=== PATIENT | female | born 1985 | race African-American/Black ===

== ENCOUNTER 2016-10-05 03:56 | Emergency (ER) | payer SELFPAY ==
[2016-10-05 04:08] VITALS: BMI 31.9
[2016-10-05] MEDS ORDERED: DIPHENHYDRAMINE 50 MG/ML VIAL IM ONE (04:10)
[2016-10-05] MEDS ORDERED: PREDNISONE 20 MG TAB PO ONE (04:10)
[2016-10-05] MEDS ORDERED: FAMOTIDINE 20 MG TAB PO ONE (04:10)
--- NOTE | 2016-10-05 04:13 | EDPRACDOC ---
- General Information Chief Complaint: Skin Rash (not drug induced) Stated Complaint: RASH Time Seen by Provider: 10/05/16 04:01 Information Source: Patient Mode Of Arrival: Car Home Medications: Home Medications Diazepam 2 mg PO BID PRN 08/29/15 Multivitamin [One Daily Essential] 1 tab PO DAILY 03/27/16 [place]-3 Fatty Acids/Fish Oil [Fish Oil 1,[address]] 1 cap PO DAILY 03/27 Butalb/Acetaminophen/Caffeine [Fioricet Tablet (50mg/325mg/40mg)] 1 - 2 tab PO Q4H PRN 04/06/16 Acetaminophen [Tylenol] 325 mg PO Q4-6H PRN 09/08/16 Hydrocodone Bit/Acetaminophen [Hydrocodon-Acetaminophen 5-325] 1 tab PO Q6H PRN #10 tab 09/09/16 Epinephrine [Epipen 2-Mathieu] 0.3 mg IM DIR PRN #2 pen.injctr 10/05/16 Prednisone [Deltasone, Orasone] 60 mg PO DAILY #15 tab 10/05/16 Allergies/Adverse Reactions: Allergies Allergy/AdvReac Type Severity Reaction Status Date / Time doxycycline Allergy Hives* Verified 10/05/16 04:12 escitalopram oxalate Allergy Hives* Verified 10/05/16 04:12 [From Lexapro] fluconazole [From Diflucan] Allergy Hives* Verified 10/05/16 04:12 nabumetone [From Relafen] Allergy Hives* Verified 10/05/16 04:12 Penicillins Allergy Hives* Verified 10/05/16 04:12 - History of Present Illness HPI: on PCN for dental infection last 7 days, having rash x 2 ays, no wheezing or trouble breathing, rash is itchy and diffuse, no h/o same, took benadryl about an hour [employer]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 no lip or tongue swelling Exposure occurred: 2 days Exposed to: Medication Symptoms started: Hours Symptoms Developed: Reports: Pruritus, Rash. Denies: Difficulty swallowing, Facial swelling Reaction Location: Reports: Generalized Relevant History of: Denies: Asthma Associated Signs and Symptoms: Denies: Abdominal Pain, Chest Pain, Faintness, Generalized Swelling ED Past Medical History - History Reviewed Yes Nurses notes reviewed and agree except as marked - Patient Medical History Neurological History: Reports: Migraine GI/ History: Reports: Gastroesophageal Reflux. Denies: Urinary Tract Infection Psychological History: Reports: Depression, Anxiety Systemic History: Denies: Cancer Surgical History: Reports: Other (HEIDI FUNDOPLICATION) - Social Medical History Smoking Status: Never smoker EDM Review of Systems - Review of Systems ROS Negative Except as Marked: Yes All systems reviewed and were negative except as marked - Physical Exam Constitutional: Alert (Awake), No apparent distress Oriented to: Time, Person, Place Last recorded Vital Signs: Last Vital Signs Temp Pulse 90 10/05/16 04:02 Resp 18 10/05/16 04:02 BP 132/77 10/05/16 04:02 Pulse Ox 99 10/05/16 04:02 Oxygen Pulse Oxygen Saturation 99 O2 Device Room Air Oxygen Flow Rate Fraction of Inspired Oxygen ( FIO2) - HEENT Head: Normal ( normocephalic) Eye Exam: Normal (PERRL, EOMI, Sclera white) Oropharynx: Normal (Pharynx:Moist without exudate,Gums-no swelling), Other ( uvula midline no swelling). negative: Red TMJ: Normal Nose: No Symptoms Reported (septum midline) Neck: Normal (FROM, trachea at midline) - Respiratory/Cardiovascular Respiratory: Normal - CTA (BBS clear to auscultation without adventitious sounds ) Cardiovascular: Normal (RRR without murmur, gallop or rub) - GI Auscultation: Normal (NABS) Palpation: Normal (Soft,No rebound or guarding, non distended) Tenderness: Non tender Harper's Sign: Negative - Musculoskeletal Back: Normal (Non-Tender) Extremities: Normal (Normal tone, Pulses 2+ No cyanosis or edema, FROM) - Integumentary Skin: Warm, Dry, Rash (diffuse erythematous blanching raised rash lesions c/w hives) Lymphatics: Normal (no adenopathy) - Neurologic Memory Impaired: Normal Motor Function: Normal (Normal tone, Pulses 2+ No cyanosis or edema, FROM) Cranial Nerve: Normal (CN II-X11 intact sensation, strength 5/5) Cerebellar: Normal Mood Description: Normal Perception: Normal - Re-evaluation Re-evaluation 1 Re-evaluation Time: 05:09 (feeling better, rash improving, plan d/c home) Decision Time to Discharge: 05:10 - Departure Yes I personally saw and evaluated the patient. Disposition: Home Final Diagnosis: Allergic reaction caused by a drug Instructions: Acute Rash (ED) Education/Counseling Given To: Patient Education/Counseling Given Regarding: Diagnosis, Treatment, Follow Up Referrals: None,No Provider [Primary Care Provider] - One Week Prescriptions: Epinephrine [Epipen 2-Mathieu] 0.3 mg IM DIR PRN #2 pen.injctr PRN Reason: SEVERE ALLERGIC REACTION Prednisone [Deltasone, Orasone] 60 mg PO DAILY #15 tab
[2016-10-05 05:23] VITALS: BP 120/71; PULSE 81
== END 2016-10-05 05:22 | disposition home or self-care (01) ==
LOC: ED 03:56
DX: L25.8 Unspecified contact dermatitis due to other agents (principal); T50.905A Adverse effect of unspecified drugs, medicaments and biological substances, initial encounter
CPT/HCPCS: 96372; 99283; J1200; J3490

== ENCOUNTER 2016-10-29 20:05 | Emergency (ER) | payer SELFPAY ==
[2016-10-29 20:18] VITALS: BP 131/78; PULSE 80; TEMP 98.3; BMI 31.8
--- NOTE | 2016-10-29 21:20 | DIRPT ---
CLINICAL DATA: Cough. Chest pain radiates down the left arm. EXAM: CHEST 2 VIEW COMPARISON: 09/08/2016 FINDINGS: The heart size and mediastinal contours are within normal limits. Both lungs are clear. The visualized skeletal structures are unremarkable. IMPRESSION: No active cardiopulmonary disease. Electronically Signed By: Abigail Zaragoza M.D. On: 10/29/2016 21:17
--- NOTE | 2016-10-29 21:35 | EDPRACDOC ---
- General Information Chief Complaint: Chest Wall Pain Stated Complaint: CP TIGHTNESS PAIN IN LT ARM Time Seen by Provider: 10/29/16 20:35 Information Source: Patient Mode of Arrival: Car Home Medications: Home Medications Diazepam 2 mg PO BID PRN 08/29/15 Multivitamin [One Daily Essential] 1 tab PO DAILY 03/27/16 [place]-3 Fatty Acids/Fish Oil [Fish Oil 1,[address]] 1 cap PO DAILY 03/27 Butalb/Acetaminophen/Caffeine [Fioricet Tablet (50mg/325mg/40mg)] 1 - 2 tab PO Q4H PRN 04/06/16 Acetaminophen [Tylenol] 325 mg PO Q4-6H PRN 09/08/16 Hydrocodone Bit/Acetaminophen [Hydrocodon-Acetaminophen 5-325] 1 tab PO Q6H PRN #10 tab 09/09/16 Epinephrine [Epipen 2-Mathieu] 0.3 mg IM DIR PRN #2 pen.injctr 10/05/16 Prednisone [Deltasone, Orasone] 60 mg PO DAILY #15 tab 10/05/16 Cyclobenzaprine HCl [Flexeril] 10 mg PO TID #21 tab 10/29/16 Allergies/Adverse Reactions: Allergies Allergy/AdvReac Type Severity Reaction Status Date / Time doxycycline Allergy Hives* Verified 10/05/16 04:12 escitalopram oxalate Allergy Hives* Verified 10/05/16 04:12 [From Lexapro] fluconazole [From Diflucan] Allergy Hives* Verified 10/05/16 04:12 nabumetone [From Relafen] Allergy Hives* Verified 10/05/16 04:12 Penicillins Allergy Hives* Verified 10/05/16 04:12 - History of Present Illness 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 DENIES FEVER, COUGH/CONGESTION, SHOB, ABD PAIN , RASH, N/V/D. NO APPARENT DISTRESS. NO CARDIAC HISTORY. Chest Pain Location: Reports: Substernal Pain Radiation: Reports: Arm (L) Symptoms Occur: Reports: Gradually Cardiac Risk Factors: Reports: None Cardiac History of: Reports: None PE Risk Factors: Reports: None Medications within 24 Hours: Reports: None Prehospital Care: Reports: None Pain Came On: Reports: Gradually Pain Status: Resolved Pain Description: Reports: Pressure Pain Worsens With: Reports: Coughing, Movement (WORSENS) Pain Improves With: Reports: Rest Associated Signs and Symptoms: Reports: None ED Past Medical History - History Reviewed Yes Nurses notes reviewed and agree except as marked - Patient Medical History Neurological History: Reports: Migraine GI/ History: Reports: Gastroesophageal Reflux. Denies: Urinary Tract Infection Psychological History: Reports: Anxiety. Denies: Depression Systemic History: Denies: Cancer Surgical History: Reports: Other (HEIDI FUNDOPLICATION). Denies: Hysterectomy - Social Medical History Smoking Status: Never smoker EDM Review of Systems - Review of Systems ROS Negative Except as Marked: Yes All systems reviewed and were negative except as marked Constitutional: No Symptoms Reported Respiratory: No Symptoms Reported Cardiovascular: Chest Pain Gastrointestinal: No Symptoms Reported Genitourinary: No Symptoms Reported Neurological: No Symptoms Reported Musculoskeletal: Chestwall Integumentary: No Symptoms Reported - Physical Exam Constitutional: Alert (Awake), No apparent distress Oriented to: Time, Person, Place Last recorded Vital Signs: Last Vital Signs Temp 98.3 F 10/29/16 20:15 Pulse 80 10/29/16 20:15 Resp 18 10/29/16 20:15 BP 131/78 10/29/16 20:15 Pulse Ox 100 10/29/16 20:15 Oxygen Pulse Oxygen Saturation 100 O2 Device Room Air Oxygen Flow Rate Fraction of Inspired Oxygen ( FIO2) - HEENT Head: Normal Eye Exam: Normal Neck: Normal, Denies Pain, Midline - Respiratory/Cardiovascular Respiratory: Normal - CTA Cardiovascular: Normal - GI Palpation: Normal Tenderness: Non tender - Musculoskeletal Back: Normal Extremities: Normal - Integumentary Skin: Normal Lymphatics: Normal - Neurologic Cerebellar: Normal Mood Description: Normal Thought: Coherent Perception: Normal ED Chest Pain Exam - Respiratory/Cardiovascular Respiratory: Normal - CTA Cardiovascular/Chest: Normal Radial Pulse: Normal Chest Palpation: Tender, Reproduces Pain - Action ASA given in the ED: No - Results Urine Test Neg (NEGATIVE) 10/29/16 20:45 Lab Results 10/29/16 20:45 Urine Test Neg Laboratory Results - last 24 hr 10/29/16 20:45 Urine Test Neg - EKG EKG #1 EKG Time: 20:10 -: Yes EKG interpreted by me Rate: bpm: 78 [place]: Normal Rhythm: NSR Block: None Hypertrophy: None ST: Normal Decision Time to Discharge: 21:36 - Departure Disposition: Home Condition: Good Final Diagnosis: Chest wall pain Instructions: Chest Wall Pain (ED) Education/Counseling Given To: Patient Education/Counseling Given Regarding: Diagnosis, Treatment, Follow Up Referrals: Malena Valderrama MD [Primary Care Provider] - One Week Prescriptions: New Cyclobenzaprine HCl [Flexeril] 10 mg PO TID #21 tab No Action Diazepam 2 mg PO BID PRN PRN Reason: Anxiety [place]-3 Fatty Acids/Fish Oil [Fish Oil 1,[address]] 1 cap PO DAILY Multivitamin [One Daily Essential] 1 tab PO DAILY Butalb/Acetaminophen/Caffeine [Fioricet Tablet (50mg/325mg/40mg)] 1 - 2 tab PO Q4H PRN PRN Reason: Headache Acetaminophen [Tylenol] 325 mg PO Q4-6H PRN PRN Reason: Pain Hydrocodone Bit/Acetaminophen [Hydrocodon-Acetaminophen 5-325] 1 tab PO Q6H PRN #10 tab PRN Reason: Pain Epinephrine [Epipen 2-Mathieu] 0.3 mg IM DIR PRN #2 pen.injctr PRN Reason: SEVERE ALLERGIC REACTION Prednisone [Deltasone, Orasone] 60 mg PO DAILY #15 tab Additional Instructions: REST AND PLENTY OF FLUIDS. IF SYMPTOMS PERSIST, FOLLOW UP WITH PCP.
== END 2016-10-29 21:58 | disposition home or self-care (01) ==
LOC: ED 20:05 → EDMC 21:58
DX: R07.89 Other chest pain (principal)
CPT/HCPCS: 71020; 81025; 99282